=== PATIENT | female | born 1975 | race Caucasian/White ===

== ENCOUNTER → 2021-03-06 11:15 | Outpatient (CLI) | payer OTHER, SELFPAY | PROVIDERS: Referring Provider Physical Medicine & Rehabilitation Pain Medicine; Visit Provider Physical Medicine & Rehabilitation Pain Medicine | DX: M47.814 Spondylosis without myelopathy or radiculopathy, thoracic region (principal); Z53.9 Procedure and treatment not carried out, unspecified reason ==

== ENCOUNTER 2021-03-12 13:57 | Emergency (ER) | payer OTHER, SELFPAY ==
[2021-03-12] VITALS (7 sets, daily range): BP systolic 115–148; BP diastolic 71–98; PULSE 68–104; RESP 16–18; TEMP 35.6; O2SAT 90–98; BMI 27.1
[2021-03-12] MEDS: KETOROLAC 30 MG/ML VIAL IM (17:52)
--- NOTE | 2021-03-12 18:37 | ED_ITS ---
HPI - Back Pain/Injury <Sanchez Almanza PA-C - Last Filed: 03/13/21 18:35> General Chief Complaint: Back Pain/Injury Stated Complaint: Back pain. Hard to move Time Seen by Provider: 03/12/21 17:45 Source: patient Limitations: no limitations Related Data Previous Rx's Medication Instructions Recorded prednisone 20 mg tablet 40 mg PO DAILY #10 tab 03/12/21 Allergies Allergy/AdvReac Type Severity Reaction Status Date / Time No Known Drug Allergies Allergy Verified 03/12/21 14:26 <Paz White DO - Last Filed: 03/13/21 01:47> History of Present Illness HPI Narrative: Patient is a 45-year-old female who has a history of Farheen Danlos, chronic back pain presenting with worsening back pain that started yesterday. She states she has had ongoing back pain which some help got worse yesterday. She says she has ?bone edema ?from a disc herniation around T7 and T8. It is radiating on her right side it is worse with movement. She has taken hydrocodone today 2 at a time twice without any relief. She says it hurts to breathe. She says it radiates from the back to the front. No abdominal pain. She does have a history of cholecystectomy. No fever or chills. She is quite tearful, and standing in room. She denies any numbness tingling or weakness in any of her extremities. <Paz White DO - Last Filed: 03/13/21 01:47> Review of Systems Narrative: GENERAL: Denies chills, fatigue, malaise, fever, sweats, travel HEENT: Denies sinus pain, ear pain, sore throat, difficulty swallowing, neck pain RESPIRATORY: Denies dyspnea, cough, wheezing, hemoptysis, sputum. CARDIOVASCULAR: Denies chest pain, palpitations, orthopnea, edema GASTROINTESTINAL: Denies nausea, vomiting, abdominal pain, diarrhea, constipation, melena. : Denies dysuria, frequency, incontinence, hematuria, urinary retention, flank pain. MUSCULOSKELETAL: See HPI SKIN: No rash, no erythema, no pruritus NEUROLOGIC: Denies weakness, dizziness, headache, numbness, change in speech, confusion PSYCHIATRIC: No concerning psychosocial issues. 12 point review of systems is negative except for those stated above and HPI Patient History <Sanchez Almanza PA-C - Last Filed: 03/13/21 18:35> Social History Smoking Status: Unknown if ever smoked Smoking Status: Unknown if ever smoked alcohol intake frequency: 0-2 drinks per day Substance Use Type: does not use Exam <Sanchez Almanza PA-C - Last Filed: 03/13/21 18:35> Initial Vital Signs Initial Vital Signs: Vital Signs Temperature 96.0 F L 03/12/21 14:26 Pulse Rate 100 H 03/12/21 14:26 Respiratory Rate 18 03/12/21 14:26 Blood Pressure 148/98 H 03/12/21 14:26 Pulse Oximetry 96 03/12/21 14:26 <Paz White DO - Last Filed: 03/13/21 01:47> Initial Vital Signs Initial Vital Signs: Vital Signs Temperature 96.0 F L 03/12/21 14:26 Pulse Rate 100 H 03/12/21 14:26 Respiratory Rate 18 03/12/21 14:26 Blood Pressure 148/98 H 03/12/21 14:26 Pulse Oximetry 96 03/12/21 14:26 GENERAL: Tearful 45-year-old female standing holding right side HEENT: Head atraumatic,EOMI, pupils reactive, face symmetric, moist mucous membranes CARDIOVASCULAR: Regular rate and rhythm without murmurs, rubs or gallops. RESPIRATORY: Breath sounds equal bilaterally, no wheezes rales or rhonchi. ABDOMEN: Soft, nontender. Normoactive bowel sounds all 4 quadrants. No guarding or rebound. No right upper quadrant pain negative Lara sign : No CVA tenderness EXTREMITIES: Normal range of motion, no clubbing or edema. Neurovascularly intact.good strong peripheral pulse. NEUROLOGICAL: Alert and oriented x4.Normal gait and speech. Cranial nerves II through XII grossly intact. Instructor Warper strength equal bilaterally SKIN: Warm, dry, no laceration, no petechiae, no rashes or lesions. Course <Sanchez Almanza PA-C - Last Filed: 03/13/21 18:35> Course Course Narrative: Patient requested to see the physician. Care was transferred over to Dr. White. Sanchez Almanza PA-C signing out. Orders Ordered: Discontinued Medications Hydromorphone HCl (Hydromorphone 1 Mg Inj) 1 mg IV NOW ONE Stop: 03/12/21 18:46 Last Admin: 03/12/21 19:16 Dose: 1 mg Documented by: CELINA Hydromorphone HCl (Hydromorphone 1 Mg Inj) 1 mg IV NOW ONE Stop: 03/12/21 20:03 Last Admin: 03/12/21 20:27 Dose: 1 mg Documented by: FRANCISCO Ketorolac Tromethamine (Ketorolac 30 Mg/Ml Vial) 30 mg IM NOW ONE Stop: 03/12/21 17:46 Last Admin: 03/12/21 17:52 Dose: 30 mg Documented by: CELINA Lorazepam (Lorazepam 2 Mg/Ml Inj) 1 mg IV NOW ONE Stop: 03/12/21 20:03 Last Admin: 03/12/21 20:27 Dose: 1 mg Documented by: FRANCISCO Vital Signs Vital signs: Vital Signs - 8 hr 03/12/21 20:41 03/12/21 20:42 03/12/21 20:43 Pulse Rate 94 H 68 Respiratory Rate 16 Blood Pressure 133/81 133/81 Pulse Oximetry 97 94 98 03/12/21 21:00 03/12/21 21:17 03/12/21 21:30 Pulse Rate 90 104 H 87 Respiratory Rate Blood Pressure 120/71 117/81 115/72 Pulse Oximetry 93 93 90 L <Paz White DO - Last Filed: 03/13/21 01:47> Orders Ordered: Discontinued Medications Hydromorphone HCl (Hydromorphone 1 Mg Inj) 1 mg IV NOW ONE Stop: 03/12/21 18:46 Last Admin: 03/12/21 19:16 Dose: 1 mg Documented by: CELINA Hydromorphone HCl (Hydromorphone 1 Mg Inj) 1 mg IV NOW ONE Stop: 03/12/21 20:03 Last Admin: 03/12/21 20:27 Dose: 1 mg Documented by: FRANCISCO Ketorolac Tromethamine (Ketorolac 30 Mg/Ml Vial) 30 mg IM NOW ONE Stop: 03/12/21 17:46 Last Admin: 03/12/21 17:52 Dose: 30 mg Documented by: CELINA Lorazepam (Lorazepam 2 Mg/Ml Inj) 1 mg IV NOW ONE Stop: 03/12/21 20:03 Last Admin: 08/13/21 20:27 Dose: 1 mg Documented by: FRANCISCO Vital Signs Vital signs: Vital Signs - 8 hr 03/12/21 20:41 03/12/21 20:42 03/12/21 20:43 Pulse Rate 94 H 68 Respiratory Rate 16 Blood Pressure 133/81 133/81 Pulse Oximetry 97 94 98 03/12/21 21:00 03/12/21 21:17 03/12/21 21:30 Pulse Rate 90 104 H 87 Respiratory Rate Blood Pressure 120/71 117/81 115/72 Pulse Oximetry 93 93 90 L MDM - Back Pain/Injury <Sanchez Almanza PA-C - Last Filed: 03/13/21 18:35> Lab Data Result diagrams: 03/12/21 20:20 03/12/21 20:20 Labs: Lab Results 03/12/21 03/12/21 Range/Units 20:20 20:20 WBC 12.8 H (4.5-11.0) X10^3/uL RBC 4.52 (4.0-5.2) X10^6/uL Hgb 14.3 (12.0-16.0) g/dL Hct 42.6 (36-46) % MCV 94.1 (80-100) fL MCH 31.5 (26-34) PG MCHC 33.5 (30-36) % RDW 13.2 (11.6-14.8) % Plt Count 259 (150-400) X10^3/uL Neut % (Auto) 71.0 (50-75) % Lymph % (Auto) 20.1 L (25-40) % [place] % (Auto) 7.8 (3-14) % Eos % (Auto) 0.4 L (2-4) % Baso % (Auto) 0.7 (0-2) % Neut # (Auto) 9000 H (2388-6433) /uL Lymph # (Auto) 2600 (9639-7675) /uL [place] # (Auto) 1000 H (0-900) /uL Eos # (Auto) 100 (0-450) /uL Baso # (Auto) 100 (0-100) /uL Sodium 136 L (137-145) mmol/L Potassium 4.0 (3.4-5.1) mmol/L Chloride 99 (98-107) mmol/L Carbon Dioxide 27 (22-32) mmol/L BUN 19 H (7-17) mg/dL Creatinine 0.74 (0.52-1.04) mg/dL Estimated GFR > 60.0 (>60) mL/min BUN/Creatinine Ratio 25.7 H (6-22) Glucose 133 H (70-100) mg/dL Calcium 9.8 (8.4-10.2) mg/dL Total Bilirubin 0.9 (0.2-1.3) mg/dL AST 30 (14-36) IU/L ALT 19 (<35) IU/L Alkaline Phosphatase 83 (38-126) U/L Total Creatine Kinase 49 (30-135) U/L CK-MB (CK-2) TNP CK-MB (CK-2) Rel Index TNP Troponin I < 0.012 (0.01-0.034) ng/mL Total Protein 8.1 (6.3-8.2) g/dL Albumin 4.9 (3.5-5.0) g/dL Globulin 3.2 (1.7-4.1) g/dL Albumin/Globulin Ratio 1.5 (1.0-2.8) Lipase 41 (23-300) U/L <Paz White, DO - Last Filed: 03/13/21 01:47> Lab Data Labs: Lab Results 03/12/21 03/12/21 Range/Units 20:20 20:20 WBC 12.8 H (4.5-11.0) X10^3/uL RBC 4.52 (4.0-5.2) X10^6/uL Hgb 14.3 (12.0-16.0) g/dL Hct 42.6 (36-46) % MCV 94.1 (80-100) fL MCH 31.5 (26-34) PG MCHC 33.5 (30-36) % RDW 13.2 (11.6-14.8) % Plt Count 259 (150-400) X10^3/uL Neut % (Auto) 71.0 (50-75) % Lymph % (Auto) 20.1 L (25-40) % [place] % (Auto) 7.8 (3-14) % Eos % (Auto) 0.4 L (2-4) % Baso % (Auto) 0.7 (0-2) % Neut # (Auto) 9000 H (5229-7350) /uL Lymph # (Auto) 2600 (3329-0654) /uL [place] # (Auto) 1000 H (0-900) /uL Eos # (Auto) 100 (0-450) /uL Baso # (Auto) 100 (0-100) /uL Sodium 136 L (137-145) mmol/L Potassium 4.0 (3.4-5.1) mmol/L Chloride 99 (98-107) mmol/L Carbon Dioxide 27 (22-32) mmol/L BUN 19 H (7-17) mg/dL Creatinine 0.74 (0.52-1.04) mg/dL Estimated GFR > 60.0 (>60) mL/min BUN/Creatinine Ratio 25.7 H (6-22) Glucose 133 H (70-100) mg/dL Calcium 9.8 (8.4-10.2) mg/dL Total Bilirubin 0.9 (0.2-1.3) mg/dL AST 30 (14-36) IU/L ALT 19 (<35) IU/L Alkaline Phosphatase 83 (38-126) U/L Total Creatine Kinase 49 (30-135) U/L CK-MB (CK-2) TNP CK-MB (CK-2) Rel Index TNP Troponin I < 0.012 (0.01-0.034) ng/mL Total Protein 8.1 (6.3-8.2) g/dL Albumin 4.9 (3.5-5.0) g/dL Globulin 3.2 (1.7-4.1) g/dL Albumin/Globulin Ratio 1.5 (1.0-2.8) Lipase 41 (23-300) U/L Imaging Data Chest x-ray: Radiologist's Impression: PROCEDURE: XR RIBS RT MIN 3V W CXR 1V INDICATIONS: right sided rib pain TECHNIQUE: 2 views of the right ribs were acquired, along with a single view chest. COMPARISON: None. FINDINGS: Surgical changes and devices: None. Bones and chest wall: No fractures or dislocations. No suspicious bony lesions. Overlying soft tissues appear unremarkable. Lungs and pleura: No pleural effusions or pneumothorax. Lungs appear clear. Mediastinum: Mediastinal contours appear normal. Heart size is normal. Surgical clips noted in the right upper quadrant IMPRESSION: Unremarkable right rib and chest radiographs without fracture Approved by: Rolando Solomon M.D. on 03/12/2021 at 18:18 CT scan - chest: Radiologist's Impression: PROCEDURE: CT ANGIO CHEST ABDOMEN PELVIS INDICATIONS: severe back pain TECHNIQUE: Precontrast 5 mm thick sections acquired from the lung apices to the iliac crests. After the administration of intravenous contrast, 2.5 mm thick sections again acquired from the lung apices to the iliac crests. Maximum intensity projection (MIP) oblique sagittal and coronal reformats were then acquired. For radiation dose reduction, the following was used: automated exposure control. COMPARISON: None. FINDINGS: Image quality: Excellent. AORTA: Thoracic and abdominal aorta are normal. No dissection or penetrating atheromatous ulcer. No significant atherosclerotic change. No periaortic fat stranding or fluid. 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 CHEST: Lungs and pleura: No acute airspace opacities. No pleural effusions or pneumothorax. Central and peripheral airways are patent and normal in caliber. Mediastinum: Heart size is normal. No pericardial effusion. No mediastinal or hilar adenopathy by size criteria. Central pulmonary arteries are normal in size. Esophagus is normal in caliber. No hiatal hernias. Bones and chest wall: No axillary adenopathy by size criteria. No suspicious bony lesions. No vertebral body compression fractures. ABDOMEN: Vasculature: Celiac trunk and mesenteric arteries are patent. Renal arteries are also patent. Solid organs: Liver demonstrates no acute finding. There is a hemangioma in the right hepatic lobe.. Gallbladder has been removed. Biliary system is non dilated. Pancreas enhances normally. Spleen is normal in size and enhancement. No adrenal nodules. Both kidneys are normal in size and enhancement, without hydronephrosis. Peritoneum and bowel: No free fluid or air. Bowel loops are normal in caliber and wall thickness. Nodes and vessels: No retroperitoneal or mesenteric adenopathy by size criteria. Inferior vena cava is normal in morphology. Miscellaneous: No ventral hernias. PELVIS: Genitourinary: Bladder wall thickness is normal. Miscellaneous: No inguinal hernias or adenopathy. No ventral hernias. Bones: No suspicious bony lesions. No vertebral body compression fractures. IMPRESSION: No acute finding. Dictated by: Severiano Lea M.D. on 03/12/2021 at 21:19 ECG Data Interpretation: Sinus rhythm rate 91 [place] interval 154 QRS 80 QTC 435 T-wave inversion noted in lead [address] changes. MDM Narrative Medical decision making narrative: Patient is quite tearful upon exam mid-level tried to initially see her however it was requested I step in. Pain is certainly worse with movement. She has taken numerous medications at home including gabapentin which she has tried previously she says it does not work, she has lidocaine patches at home also does not work she has hydrocodone that she was taking earlier today which has not helped Tylenol and Motrin as well not . Pain has gradually gotten worse over the last 24 hours. It is clearly on the lateral side and worse with movement. I have low suspicion for dissection however with Farheen danlos, she is certainly at risk. Blood work and CT angio do not show any abnormality pain is much better controlled with IV Dilaudid and Ativan. She finally got some relief. At this time I do believe that this is musculoskeletal I do not see any rash to suggest shingles. Discussed with her very little to add for her pain control but she is willing to try prednisone. At this time I recommend she follow-up with her primary care provider Discharge Plan Departure Patient Disposition: Home Clinical Impression: Acute exacerbation of chronic low back pain Discharge Date/Time: 03/12/21 22:02 Instructions: DI for Muscle Strain Activity Restrictions/Additional Instructions: *You have been diagnosed with acute on chronic back pain *What to do: Blood work and CT scan are overall reassuring. I believe that this is musculoskeletal. Unfortunately are on most of the medications. We will try short course of prednisone recommend start this tomorrow. *Continue to take medications as directed Prednisone 40 mg once a day for 5 days *Follow up with your primary care provider in 2-3 days *Return to ER if you should have a fever, increasing pain, right or any new, worsening or concerning symptoms Prescriptions: New prednisone 20 mg tablet 40 mg PO DAILY Qty: 10 RF: 0 Referrals: Shira Almanza MD [Primary Care Provider] -
--- NOTE | 2021-03-12 18:45 | DI.RAD.S_ITS ---
PROCEDURE: XR RIBS RT MIN 3V W CXR 1V INDICATIONS: right sided rib pain TECHNIQUE: 2 views of the right ribs were acquired, along with a single view chest. COMPARISON: None. FINDINGS: Surgical changes and devices: None. Bones and chest wall: No fractures or dislocations. No suspicious bony lesions. Overlying soft tissues appear unremarkable. Lungs and pleura: No pleural effusions or pneumothorax. Lungs appear clear. Mediastinum: Mediastinal contours appear normal. Heart size is normal. Surgical clips noted in the right upper quadrant IMPRESSION: Unremarkable right rib and chest radiographs without fracture Approved by: Rolando Solomon M.D. on 03/12/2021 at 18:18
[2021-03-12] MEDS: HYDROMORPHONE 1 MG INJ IV ×2 (19:16→20:27)
--- NOTE | 2021-03-12 19:52 | PC.NURSE ---
Addendum entered by Myrtle Castillo R.N. 03/12/21 19:55: Pt also reports that she uses hydrocodone tablets for pain at home which she has taken multiple doses of today. Original Note: 30mg torodol given IM without relief. Pt given 1mg dilaudid IV after failed IV access. After 30 min pt states she is not feeling any better. Standind in room unable to sit. Given ice pack for back. Sanchez Gibbsoll in to reassess. Pt states she can have up to 4mg dilaudid IM before feeling relief. Advised that 4mg IM of dilaudid will not be administered today and she needs to follow up with her PCP for pain management. Pt has a pending appt with pain specialist for cortisone injections. Pt demanding to speak to a physician. Dr White notified. No new orders at this time.
--- NOTE | 2021-03-12 19:57 | PC.NURSE ---
30mg torodol given IM without relief. Pt given 1mg dilaudid IM after failed IV access. After 30 min pt states she is not feeling any better. Standind in room unable to sit. Given ice pack for back. Sanchez Gibbsoll in to reassess. Pt states she can have up to 4mg dilaudid IM before feeling relief. Advised that 4mg IM of dilaudid will not be administered today and she needs to follow up with her PCP for pain management. Pt has a pending appt with pain specialist for cortisone injections. Pt demanding to speak to a physician. Dr White notified. No new orders at this time Pt also reports that she takes hydrocodone tablets at home for pain which she has taken multiple doses of today prior to arrival.
--- NOTE | 2021-03-12 20:02 | DI.CT.S_ITS ---
PROCEDURE: CT ANGIO CHEST ABDOMEN PELVIS INDICATIONS: severe back pain TECHNIQUE: Precontrast 5 mm thick sections acquired from the lung apices to the iliac crests. After the administration of intravenous contrast, 2.5 mm thick sections again acquired from the lung apices to the iliac crests. Maximum intensity projection (MIP) oblique sagittal and coronal reformats were then acquired. For radiation dose reduction, the following was used: automated exposure control. COMPARISON: None. FINDINGS: Image quality: Excellent. AORTA: Thoracic and abdominal aorta are normal. No dissection or penetrating atheromatous ulcer. No significant atherosclerotic change. No periaortic fat stranding or fluid. 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 CHEST: Lungs and pleura: No acute airspace opacities. No pleural effusions or pneumothorax. Central and peripheral airways are patent and normal in caliber. Mediastinum: Heart size is normal. No pericardial effusion. No mediastinal or hilar adenopathy by size criteria. Central pulmonary arteries are normal in size. Esophagus is normal in caliber. No hiatal hernias. Bones and chest wall: No axillary adenopathy by size criteria. No suspicious bony lesions. No vertebral body compression fractures. ABDOMEN: Vasculature: Celiac trunk and mesenteric arteries are patent. Renal arteries are also patent. Solid organs: Liver demonstrates no acute finding. There is a hemangioma in the right hepatic lobe.. Gallbladder has been removed. Biliary system is non dilated. Pancreas enhances normally. Spleen is normal in size and enhancement. No adrenal nodules. Both kidneys are normal in size and enhancement, without hydronephrosis. Peritoneum and bowel: No free fluid or air. Bowel loops are normal in caliber and wall thickness. Nodes and vessels: No retroperitoneal or mesenteric adenopathy by size criteria. Inferior vena cava is normal in morphology. Miscellaneous: No ventral hernias. PELVIS: Genitourinary: Bladder wall thickness is normal. Miscellaneous: No inguinal hernias or adenopathy. No ventral hernias. Bones: No suspicious bony lesions. No vertebral body compression fractures. IMPRESSION: No acute finding. Dictated by: Severiano Lea M.D. on 03/12/2021 at 21:19 Approved by: Severiano Lea M.D. on 03/12/2021 at 21:23
[2021-03-12] MEDS: LORazepam 2 MG/ML INJ 1 MG IV (20:27)
[2021-03-12 20:41] LABS: Add Manual Diff / Slide Review NO; Basophils Absolute Auto 100 /uL (0-100); Basophils Percent Auto 0.7 % (0-2); Eosinophils Absolute Auto 100 /uL (0-450); Eosinophils Percent Auto 0.4 % (2-4); Hematocrit 42.6 % (36-46); Hemoglobin 14.3 g/dL (12.0-16.0); Lymphocytes Absolute Auto 2600 /uL (1100-4500); Lymphocytes Percent Auto 20.1 % (25-40); Mean Corpuscular HGB Conc 33.5 % (30-36); Mean Corpuscular Hemoglobin 31.5 PG (26-34); Mean Corpuscular Volume 94.1 fL (80-100); Monocytes Absolute Auto 1000 /uL (0-900); Monocytes Percent Auto 7.8 % (3-14); Neutrophils Absolute Auto 9000 /uL (1500-7000); Platelet Count 259 X10^3/uL (150-400); Red Blood Cell Count 4.52 X10^6/uL (4.0-5.2); Red Cell Distribution Width 13.2 % (11.6-14.8); White Blood Cell Count 12.8 X10^3/uL (4.5-11.0)
--- NOTE | 2021-03-12 20:43 | PC.NURSE ---
IV access obtained. pt medicated with dilaudid and ativan per SEP and was able to lay down. awaiting EKG
[2021-03-12 20:54] LABS: Alanine Aminotransferase 19 IU/L (<35); Albumin 4.9 g/dL (3.5-5.0); Albumin Globulin Ratio 1.5 (1.0-2.8); Alkaline Phosphatase 83 U/L (38-126); Aspartate Aminotransferase 30 IU/L (14-36); BUN Creatinine Ratio 25.7 (6-22); Bilirubin Total 0.9 mg/dL (0.2-1.3); Blood Urea Nitrogen 19 mg/dL (7-17); Calcium 9.8 mg/dL (8.4-10.2); Carbon Dioxide 27 mmol/L (22-32); Chloride 99 mmol/L (98-107); Creatine Kinase 49 U/L (30-135); Estimated Glomerular Filt Rate > 60.0 mL/min (>60); Globulin 3.2 g/dL (1.7-4.1); Glucose 133 mg/dL (70-100); HEMOLYSIS < 15 (0-50); Lipase 41 U/L (23-300); Sodium 136 mmol/L (137-145); Total Protein 8.1 g/dL (6.3-8.2)
[2021-03-12 21:05] LABS: Troponin I < 0.012 ng/mL (0.01-0.034)
== END 2021-03-12 22:02 | disposition home or self-care (01) ==
PROVIDERS: Emergency Provider Emergency Medicine; PCP Student in an Organized Health Care Education/Training Program
DX: M54.5 Low back pain (principal); R07.81 Pleurodynia
CPT/HCPCS: 36415; 71101; 71275; 74174; 80053; 82550; 83690; 84484; 85025; 93005; 96372; 96374; 96375; 96376; 99284; J1170; J1885; J2060; Q9967

== ENCOUNTER 2022-05-08 20:02 | Emergency (ER) | payer OTHER, SELFPAY ==
[2022-05-08 20:06] VITALS: BP 134/90; PULSE 95; RESP 18; TEMP 36.2; O2SAT 97; BMI 25.3
[2022-05-08] MEDS: LIDOCAINE 1% (PF) 6 ML (21:19)
[2022-05-08] MEDS: LIDOCAINE 1% (PF) 2 ML (21:19)
--- NOTE | 2022-05-08 21:24 | ED.GENADULT ---
HPI - General Adult General Chief complaint: Extremity Injury, Upper Stated complaint: Left thumb lac Time Seen by Provider: 05/08/22 20:15 Source: patient Mode of arrival: Ambulatory History of Present Illness HPI narrative: 46-year-old woman with a history of arthritis takes Mobic daily was cutting some vegetables at home and suffered a flap laceration to the tip of her thumb. Bleeding has been difficult to control and she comes in for further evaluation Related Data Previous Rx's Medication Instructions Recorded prednisone 20 mg tablet 40 mg PO DAILY #10 tabs 03/12/21 Allergies Allergy/AdvReac Type Severity Reaction Status Date / Time No Known Drug Allergies Allergy Verified 05/08/22 20:06 Review of Systems Review of Systems Narrative: Remainder of complete review of systems is otherwise unremarkable except for that included in the HPI. Patient History Social History Smoking Status: Never smoker Smoking Status: Never smoker alcohol intake frequency: 0-2 drinks per day Substance Use Type: does not use Exam Initial Vital Signs Initial Vital Signs: Vital Signs Temperature 97.1 F L 05/08/22 20:06 Pulse Rate 95 H 05/08/22 20:06 Respiratory Rate 18 05/08/22 20:06 Blood Pressure 134/90 05/08/22 20:06 Pulse Oximetry 97 05/08/22 20:06 Oxygen Delivery Method 05/08/22 20:06 General: Alert appropriate in no acute distress Respiratory: Able to speak in full sentences, no obvious respiratory distress Skin: No obvious rashes, warm and dry Neurologic: Grossly intact no obvious asymmetries or abnormalities Psych: appropriate insight and affect, cooperative Extremity: 1 cm total flap laceration, nail is not involved, pad of the thumb only, no bone is exposed. Neurovascularly intact. Procedures Laceration Repair Left thumb: Time of procedure: 21:29 Site: hand Side (If applicable): left Description: flap Depth: simple, single layer Local Anesthetic: lidocaine 1% Amount of anesthesia used (mL): 3 Pre-repair: wound explored, irrigated extensively and deep structures intact Skin layer closed with: nylon Skin layer suture size: 4-0 Number of sutures: 3 Technique: simple, interrupted Course Vital Signs Vital signs: Vital Signs - 8 hr 05/08/22 20:06 Temperature 97.1 F L Pulse Rate 95 H Respiratory Rate 18 Blood Pressure 134/90 Pulse Oximetry 97 Oxygen Delivery Method Room Air Medical Decision Making MDM Narrative Medical decision making narrative: 46-year-old woman with a simple flap laceration to the tip of her some that is quickly and easily repaired. She tolerated the procedure well. No evidence of additional injury. She is up-to-date on tetanus. She is safe for home discharge Discharge Plan Departure Patient Disposition: Home Clinical Impression: Laceration of left thumb Qualifiers: Encounter type: initial encounter Damage to nail status: without damage Foreign body presence: without foreign body Qualified Code(s): S61.012A - Laceration without foreign body of left thumb without damage to nail, initial encounter Instructions: DI for Avulsion Laceration (Not Requiring Sutures) Activity Restrictions/Additional Instructions: Thank you for coming in today You have a small flap laceration to the tip of your left thumb. There are 3 sutures [address] it in place. It may completely reattached but it may end up being a biologic bandage with the skin eventually drying up in falling off. Either way it is going to heal faster with the repair that we did today. Make sure that you keep the thumb covered and a Band-Aid on it particularly while at work. You can take the sutures out on or about May 15. If it seems to be getting infected with increasing pain, redness, drainage you do need to be re-evaluated Thank you for coming in today Prescriptions: No Action prednisone 20 mg tablet 40 mg PO DAILY Qty: 10 0RF Referrals: Shira Almanza MD [Primary Care Provider] -
[2022-05-08 21:31] VITALS: BP 125/85; PULSE 82; RESP 16; O2SAT 99
== END 2022-05-08 21:34 | disposition home or self-care (01) ==
PROVIDERS: Emergency Provider Emergency Medicine; PCP Student in an Organized Health Care Education/Training Program
DX: S61.012A Laceration without foreign body of left thumb without damage to nail, initial encounter (principal); W26.0XXA Contact with knife, initial encounter
CPT/HCPCS: 12001; 99282; 99283